=== PATIENT | female | born 2000 | race Caucasian/White ===

== ENCOUNTER 2020-12-20 23:58 | Emergency (ER) | payer BC, SELFPAY ==
[2020-12-21] VITALS: BP 111/69; PULSE 96; RESP 16; TEMP 36.1; O2SAT 98; BMI 25.2
--- NOTE | 2020-12-21 00:07 | EDS_ITS ---
HPI History of Present Illness Chief Complaint: ETOH Intox Informant: EMS Narrative Narrative: 20-year-old female [employer] student presents the emergency room via EMS. Patient apparently has been drinking alcohol tonight. She began vomiting and not as responsive. She has had bowel incontinence. Patient cannot offer any information at this time. Her friend states that she drank all the same things that she did. She reports that she saw her earlier in the day and she seemed fine. They got together had dinner and started drinking around 1930 hrs. The friend tells me she does not believe the patient has fallen. [place] security solve the patient and her friend and stop to offer assistance and that is how EMS was called. PFSH PFS Medical History unable to obtain unable to obtain Home Medications Unobtainable 12/21/20 [History Last Taken Unknown] Allergy/AdvReac Type Severity Reaction Status Date / Time Unable to Assess Allergy Verified 12/21/20 00:04 Surgical History unable to obtain unable to obtain Social History (Updated 12/21/20 @ 00:[address] Austin Mccoy, DO) Smoking Status: Unknown if ever smoked substance use type: does not use ROS ROS ED Review of Systems ROS Unobtainable: due to mental status EXAM Physical Exam Const Vital Signs: 12/21/20 00:00 Temperature 97 F L Temperature Source Temporal Pulse Rate 96 Respiratory Rate 16 Blood Pressure 111/69 Blood Pressure Mean 83 Pulse Ox 98 Positive well nourished and well developed General Appearance ED: well developed HEENT Reports normocephalic, head/scalp atraumatic and moist mucous membranes Eyes PERRL and EOMs intact bilaterally Neck no lymphadenopathy, supple and no JVD Resp normal respiratory effort and clear to auscultation bilaterally Cardio regular rate, regular rhythm and no murmurs GI normal to inspection, nondistended, normoactive bowel sounds and non-tender Palpation: soft Narrative: Incontinent of feces Back/Spine no CVA tenderness and normal ROM Extremity normal to inspection General Extremety ED: Negative for edema General Extremity: Negative for edema Neuro CN's II-XII intact bilaterally Neuro Narrative: Patient appears clinically intoxicated. Moves all extremities. Withdraws from pain. Sensorium / Orientation: lethargic Motor Exam: strength 5/5 throughout Psych Mood & Affect: Negative for depressed or tearful Skin no rashes or lesions noted and no wounds Skin Narrative: Superficial abrasions on buttock MDM MDM MDM Narrative Medical decision making narrative: Patient's blood alcohol level is 216. I reassessed the patient several times. At 0230 hrs. the patient is now conversant. She is able to sit up in the bed and drink some water. She says thank you for the water. The patient tolerates the p.o. challenge and is clinically more sober patient will be discharged from the emergency room with instructions to avoid alcohol. Lab Data Attestation: I reviewed the patient's lab results. Labs: Laboratory Results - last 24 hr 12/21/20 00:37 Ethyl Alcohol 216.0 Discharge Plan Triage Chief Complaint: ETOH Intox ED Provider: Austin Mccoy Dx/Rx/DC Orders Clinical Impression: Alcohol intoxication Instructions: ED Alcohol Intoxication Prescriptions: No Action Unobtainable RF: 0 Primary Care Provider: Care Physician,No Primary Referrals: [facility] [GROUP OF PHYSICIANS] - As Needed Care Physician,No Primary [Primary Care Provider] - Disposition Disposition: Home, Self Care
[2020-12-21] MEDS: Ondansetron 4 MG/2 ML Vial IV (00:20)
[2020-12-21 02:36] VITALS: BP 114/88; PULSE 74; RESP 16
== END 2020-12-21 03:53 | disposition home or self-care (01) ==
LOC: ED 12-21 03:21
PROVIDERS: Emergency Provider Emergency Medicine
DX: F10.129 Alcohol abuse with intoxication, unspecified (principal); Y90.7 Blood alcohol level of 200-239 mg/100 ml
CPT/HCPCS: 82077; 96374; 99284; J7030; A4216; J2405